=== PATIENT | female | born 1950 | race Caucasian/White ===

== ENCOUNTER 2017-07-14 10:54 | Day surgery (SDC) | payer BC ==
[~2017-07-14] VITALS: Ht 154.9 cm; Wt 63.5 kg
--- NOTE | ~2017-07-14 | OP ---
PATIENT NAME: ALESSANDRO ALVARADO MEDICAL RECORD: [id number] :54 LOCATION:[facility] ADMISSION DATE: SURGEON: WANDA WOODS MD DATE OF OPERATION: 07/14/2017 PREOPERATIVE DIAGNOSIS: Right trigger thumb. POSTOPERATIVE DIAGNOSIS: Right trigger thumb. PROCEDURE: Release of right trigger thumb. SURGEON: Wanda Woods MD ANESTHESIA: General. INTRAOPERATIVE COMPLICATIONS: None. SUMMARY OF PATHOLOGIC FINDINGS: A very tight satinder at the trigger thumb. OPERATIVE SUMMARY IN DETAIL: After obtaining the appropriate preoperative orthopedic surgery consent as well as anesthetic consultation, evaluation and clearance, the patient was brought to the operating room and placed on the operating table in supine position. After general laryngeal mask airway was administered, tourniquet was placed about the proximal aspect of the right upper extremity. Right upper extremity was then prepped and draped in routine sterile fashion. The arm was elevated and exsanguinated, tourniquet was inflated to 250 mmHg. An incision was made directly over the satinder, taken down to the level of the satinder with digital nerves retracted. The satinder was incised in its entirety. There was some excoriation of the flexor tendon. No full thickness tearing. Wound was copiously irrigated and closed with 4-0 Prolene. The area was locally anesthetized with a mixture of lidocaine and Marcaine. Sterile dressings were applied. Tourniquet was deflated. The patient was awakened and taken to recovery room in stable condition. All final needle and sponge counts were correct. TRANSINT:[id number] Voice Confirmation ID: [id number] DOCUMENT ID: [id number] PEGGY CHAU, WANDA LATIF at 1225 CC: [id number] DICTATION DATE: 09/01/17 0942 [place] RO[facility] COVERER: 09/01/17 1117 [facility] 07/14/17 [place] [id number] [place] [address]
[2017-07-14] MEDS ORDERED: ADDERALL 30 MG30 MG PO (12:11)
[2017-07-14 12:12] LABS: HEMATOCRIT 38.9 % (36.0-48.0); HEMOGLOBIN 13.2 g/dL (12-16); MCH 32.1 pg (26.0-34.0); MCHC 33.9 g/dL (31.0-37.0); MCV 94.6 fL (80.0-100.0); MEAN PLATELET VOLUME 10.1 fL (7.4-10.4); RBC 4.11 10x6/uL (4.00-5.40); RDW 12.4 % (11.5-14.5); WBC 6.7 10x3/uL (4.8-10.8)
[2017-07-14] MEDS ORDERED: ZYRTEC10 MG PO (12:12)
[2017-07-14] MEDS ORDERED: BAYER CHEWABLE81 MG PO (12:12)
[2017-07-14] MEDS ORDERED: MULTIPLE VITAMI1 TA1 PO (12:13)
[2017-07-14] MEDS ORDERED: CALTRATE 600 M600 M1 PO (12:13)
[2017-07-14] MEDS ORDERED: ALEVE220 MG PO (12:14)
[2017-07-14] MEDS ORDERED: IBUPROFEN200 MG PO (12:14)
[2017-07-14 12:21] VITALS: BP 138/80; Ht 154.9 cm; Wt 63.5 kg
== END 2017-07-14 15:40 | disposition home or self-care (01) ==
LOC: D.OPS 10:54 → D.PAN 12:45 → D.OPS 13:00
PROVIDERS: Anesthesiology
DX: M65.311 Trigger thumb, right thumb (principal); Z01.812 Encounter for preprocedural laboratory examination

== ENCOUNTER 2017-08-18 11:01 | Day surgery (SDC) | payer BC ==
[~2017-08-18] VITALS: Ht 154.9 cm; Wt 63.5 kg
--- NOTE | ~2017-08-18 | OP ---
PATIENT NAME: ALESSANDRO ALVARADO MEDICAL RECORD: [id number] :54 LOCATION:[facility] ADMISSION DATE: SURGEON: WANDA WOODS MD DATE OF OPERATION: 08/18/2017 PREOPERATIVE DIAGNOSIS: Trigger thumb of the left hand. POSTOPERATIVE DIAGNOSIS: Trigger thumb of the left hand. PROCEDURE: A1 satinder trigger thumb release. SURGEON: Wanda Woods MD ANESTHESIA: General. INTRAOPERATIVE COMPLICATIONS: None. SUMMARY OF PATHOLOGIC FINDINGS: The patient was found to have very tight satinder. The tendon had attritional changes, but no tearing was noted. OPERATIVE SUMMARY IN DETAIL: After obtaining the appropriate preoperative orthopedic surgery consent as well as anesthetic consultation, evaluation, and clearance, the patient was brought to the operating room and placed on the operating table in supine position. After general laryngeal mask airway was administered, tourniquet was placed about the proximal aspect of the left upper extremity. Left upper extremity was then prepped and draped in routine sterile fashion. Arm was elevated and exsanguinated. Tourniquet was inflated to 250 mmHg. An incision was made at the base of the thumb directly over the satinder. Incision was carefully taken down to the level of the digital nerves, which were identified and retracted. The A1 satinder sheath was identified. Incision was made and it was completely incised using Littler scissors. The tendon was evaluated. Findings as noted above. Wound was then irrigated and closed with 4-0 Prolene in routine interrupted fashion. Sterile dressings were applied. Tourniquet was deflated. The patient was awakened and taken to recovery room in stable condition. All final needle and sponge counts were correct. TRANSINT:[id number] Voice Confirmation ID: [id number] DOCUMENT ID: [id number] WANDA WOODS MD at 0749 CC: [id number] DICTATION DATE: 08/18/17 1505 [facility] SUPERVISOR: 08/18/17 1600 [facility] 08/18/17 [place] [id number]
[~2017-08-18 11:01] MED LIST: ADDERALL 30 MG30 MG PO; ALEVE220 MG PO; BAYER CHEWABLE81 MG PO; CALTRATE 600 M600 M1 PO; IBUPROFEN200 MG PO; MULTIPLE VITAMI1 TA1 PO; ZYRTEC10 MG PO
[2017-08-18 11:45] LABS: HEMATOCRIT 41.1 % (36.0-48.0); HEMOGLOBIN 14.1 g/dL (12-16); MCH 32.4 pg (26.0-34.0); MCHC 34.3 g/dL (31.0-37.0); MCV 94.5 fL (80.0-100.0); MEAN PLATELET VOLUME 9.8 fL (7.4-10.4); RBC 4.35 10x6/uL (4.00-5.40); RDW 12.3 % (11.5-14.5); WBC 7.8 10x3/uL (4.8-10.8)
[2017-08-18] MEDS ORDERED: FEXOFENADINE H180 MG PO (11:47)
[2017-08-18 11:54] VITALS: BP 146/83; Ht 154.9 cm; Wt 63.5 kg
[2017-08-18] MEDS ORDERED: HYDROCODONE-APA1 TAB PO (15:01)
== END 2017-08-18 16:35 | disposition home or self-care (01) ==
LOC: D.OPS 11:01 → D.PAN 13:30 → D.OPS 16:35 → D.PAN 17:45
PROVIDERS: Anesthesiology
DX: M65.312 Trigger thumb, left thumb (principal); Z01.812 Encounter for preprocedural laboratory examination